=== PATIENT | male | born 1965 | race Caucasian/White ===

== ENCOUNTER 2016-10-17 08:39 | Observation (INO) | payer MEDICARE, OTHER ==
[~2016-10-17] VITALS: Ht 175.3 cm; Wt 93.8 kg
[2016-10-17] VITALS (38 sets, daily range): BP systolic 121–160; BP diastolic 67–98; PULSE 68–82; RESP 11–21; Ht 175.3 cm; Wt 93.8 kg
[2016-10-17] MEDS ORDERED: PRAV20TA2 PO (09:29)
[2016-10-17] MEDS ORDERED: ASPI81TA3 PO (09:29)
[2016-10-17] MEDS ORDERED: AMLO2.5T78 PO (09:29)
[2016-10-17] MEDS ORDERED: POLYMYXIN/BACITRACIN 1L IRRIG ONE (09:42)
[2016-10-17 09:49] LABS: ADD SCAN DIFF NO
[2016-10-17 09:52] LABS: BASOPHILS % 0.4 % (0.0-2.0); EOSINOPHILS # 0.2 10^3/ul (0.0-0.5); EOSINOPHILS % 2.6 % (0.0-7.0); HEMATOCRIT 47.1 % (42.0-52.0); HEMOGLOBIN 15.8 g/dl (14.0-18.0); LYMPHOCYTES # 2.1 10^3/ul (0.8-2.9); LYMPHOCYTES % 26.6 % (15.0-51.0); MEAN CORPUSCULAR HGB CONC 33.5 g/dl (32.0-37.0); MEAN CORPUSCULAR VOLUME 89.4 fl (82.0-101.0); MEAN PLATELET VOLUME 10.2 fl (7.4-10.4); MONOCYTE # 0.5 10^3/ul (0.3-0.9); MONOCYTES % 5.9 % (0.0-11.0); NEUTROPHILS % 63.9 % (39.0-77.0); PLATELET COUNT 220 10^3/UL (140-415); RED BLOOD COUNT 5.27 10^6/ul (4.70-6.10); WHITE BLOOD COUNT 7.8 10^3/ul (4.8-10.8)
[2016-10-17] MEDS ORDERED: CEFAZOLIN 1 GM/50 ML (PMX) 50 ML IVPB ONE ×2 (09:53→12:55)
[2016-10-17] MEDS ORDERED: LIDOCAINE 1% (MDV) 20 ML INJ ONE ×2 (09:58→11:04)
[2016-10-17] MEDS ORDERED: SOD CHLORIDE 0.9% 1,000 ML ONE (09:58)
[2016-10-17 10:03] LABS: INR 1.01; PROTIME 13.3 Sec (12.2-14.2)
[2016-10-17 10:04] LABS: PARTIAL THROMBOPLASTIN TIME 29.4 Sec (25.0-35.0)
[2016-10-17 10:20] LABS: CALCIUM 9.3 mg/dl (8.4-10.2); CREATININE 0.77 mg/dl (0.61-1.24); POTASSIUM 4.1 mmol/L (3.5-5.1)
[2016-10-17] MEDS ORDERED: LIDOCAINE 1%/EPI (MDV) 20 ML INJ ONE (10:40)
[2016-10-17] MEDS ORDERED: PROPOFOL 40 ML ONE (11:04)
[2016-10-17] MEDS ORDERED: FENTAnyl 50 MCG/ML VIAL ONE (11:05)
[2016-10-17] MEDS ORDERED: IODIXANOL LOCM 50 ML BTL ONE (11:32)
[2016-10-17] MEDS ORDERED: PROPOFOL 20 ML ONE (11:49)
[2016-10-17] MEDS ORDERED: SOD CHLORIDE 0.9% 1,000 ML IV SCH (12:26)
[2016-10-17] MEDS ORDERED: EPHEDrine SULFATE 50 MG/5 ML SYG IV PRN (12:30)
[2016-10-17] MEDS ORDERED: FENTAnyl 50 MCG/ML VIAL IV PRN ×3 (12:30)
[2016-10-17] MEDS ORDERED: LABETALOL HCL 20MG INJ IV PRN (12:30)
[2016-10-17] MEDS ORDERED: AL HYDROX/MG HYDROX/SIMETH 30 ML CUP PO PRN (12:30)
[2016-10-17] MEDS ORDERED: OXYCODONE/ACETAMINOPHEN (5/325) TAB PO PRN ×2 (12:30)
[2016-10-17] MEDS ORDERED: ACETAMINOPHEN 325 MG TAB PO PRN ×2 (12:30→13:00)
[2016-10-17] MEDS ORDERED: ONDANSETRON 4 MG INJ IV PRN ×2 (12:30→13:00)
[2016-10-17] MEDS ORDERED: hydrALAzine 20 MG INJ IV PRN ×2 (12:30→18:00)
[2016-10-17] MEDS ORDERED: morphine 2 MG INJ IV PRN ×2 (12:30→13:00)
--- NOTE | 2016-10-17 12:44 | SP ---
DATE OF PROCEDURE: REFERRING PHYSICIAN: Dr. Adam REASON FOR EVALUATION: Loss of capture of a pacemaker, suspected dislodged lead. POST-PROCEDURE DIAGNOSIS: Confirmed right ventricular lead dislodgment. PROCEDURES PERFORMED: 1. Explant of the old pacemaker, explant of the old lead. 2. Pacemaker, the new single chamber MRI pacemaker. 3. Fluoroscopy with interpretation. 4. Upper extremity venogram. 5. Post-procedure 2-D echo to assess absence of pericardial effusion. DEVICE INFORMATION: 1. Explanted device, [employer] SR 1240, serial #[id number], initially placed on 2015. 2. RV lead explanted, [employer] Tendril STS 2088TC, 58 cm, serial number [id number]. 3. New system had a [employer] MRI lead 1272, serial #[id number]. 4. New RV lead is Tendril MRI LPA lead 1200M, 58 cm lead, serial number [id number]. 5. Acute threshold R-wave was 9.9 millivolts, lead impedance was 700 ohms, capture 0.5 volts at 0.4 msec. 6. Initial setting is VVI 60. DESCRIPTION OF PROCEDURE: The informed consent was obtained. The patient [facility] into the [facility] in a fasting condition. Antibiotics were given prior to the procedure. The antibiotic inject ion was given to the patient before he had the procedure. Fluoroscopy was performed and it showed t hat RV lead was in an appropriate position, likely extracardiac in IVC or in one of the hepatic vein s. The patient had the left side of the chest prepped and draped in usual the sterile fashion. A 3 cm incision was made over the old scar. Upper extremity venogram was performed to assess patency. Using modified Seldinger technique, the subclavian was cannulated and J-wire passed easily. From t here using a 7-Chilean sheath as a base, the RV lead was advanced into RV apex and it was actively fi xed. Some slack was left inside the lead, and the sheath was peeled away. The lead was sutured to the muscle layer was 2-0 Ethibond sutures and the lead was attached to the generator. Then, the add itional dissection of the old lead was performed. The old generator was detached from the lead and removed from the R-lead. The extending wire on the lead, corkscrew wire, was retracted carefully, a nd under fluoroscopic guidance the lead was pulled away. There was no obvious hemodynamically compr omised and the lead came out easily. Then, hemostasis was obtained. The new pacemaker generator sy stem was placed inside the pocket after the pocket was irrigated with antibiotic solution. The skin was closed with multiple layers of 2-0 Vicryl sutures. Then the lead was closed. There was no obv ious hemodynamic instability. The patient had immediate post-procedure transthoracic echo which daylin wed preserved ejection fraction, no evidence of pericardial effusion. I am going to place the [facility] intensive care unit for observation now as he will be monitored for several hours and to confirm that there is no hemodynamic instability. Other than that, the patient will likely go home tomorrow after a 23-hour observation period. He will be continued on antibiotics and instructed to minimize motion of the arm to prevent further dislodgement. I would like to thank Dr. Adam for referring this patient for my evaluation. Dictated By: ALEXIS MCBRIDE/LILIAN Conf#: [id number] DID#: [id number]
[2016-10-17] MEDS ORDERED: DOCUSATE SODIUM 100 MG CAP PO PRN (13:00)
[2016-10-17] MEDS ORDERED: BISACODYL (EC) 5 MG TAB PO PRN (13:00)
[2016-10-17] MEDS ORDERED: ALBUTEROL/IPRATROPIUM (NEB) 3 ML AMP HHN PRN (13:00)
[2016-10-17] MEDS ORDERED: NA PHOSPHATE/BIPHOS 133 ML ENEMA PR PRN (13:00)
[2016-10-17] MEDS ORDERED: NACL 0.9% 3 ML SYG IV SCH (13:00)
[2016-10-17] MEDS ORDERED: ZOLPIDEM 5 MG TAB PO PRN (13:00)
[2016-10-17] MEDS ORDERED: MAGNESIUM HYDROXIDE 30ML CUP PO PRN (13:00)
[2016-10-17] MEDS ORDERED: HYDROCODONE/APAP (5/325) TAB PO PRN (13:00)
[2016-10-17] MEDS ORDERED: BISACODYL 10 MG SUPP PR PRN (13:00)
--- NOTE | 2016-10-17 13:11 | RADRPT ---
PROCEDURE: XR Chest. CLINICAL INDICATION: Pacemaker placement. TECHNIQUE: Single frontal view. COMPARISON: None. FINDINGS: The lungs are clear. The heart size is normal. There is a left-sided single lead permanent pacemaker with the tip in the right ventricle. There is no pleural effusion. There is no pneumothorax. IMPRESSION: 1. Permanent pacemaker. 2. No pneumothorax. RPTAT: QQ .Marques Trotter MD, MD Date Time Electronically viewed and signed by .Marques Trotter MD, MD on 10/17/2016 13:10 .R/
[2016-10-17] MEDS: ASPIRIN 81 MG TAB PO SCH (13:21)
[2016-10-17] MEDS: AMLODIPINE 5 MG TAB PO SCH (13:21)
[2016-10-17] MEDS: CEFAZOLIN 1 GM/50 ML (PMX) 50 ML IVPB SCH ×2 (13:21→21:57)
[2016-10-17] MEDS: ACCU-CHEK XX SCH ×2 (17:30→21:00)
--- NOTE | 2016-10-17 18:39 | HP ---
DATE OF ADMISSION: 10/17/2016 REASON FOR ADMISSION: Status post a new, single-chamber MRI pacemaker placement and removal of the old pacemaker due to confirmed right ventricular lead dislodgement. HISTORY OF PRESENT ILLNESS: This is a 51-year-old male, who has a past medical history of hypertens ion, hyperlipidemia, history of a previous CVA, history of a complete heart block requiring a pacema ker placement approximately more than 1 year before. The patient follows with our electrophysiologi st, Dr. Harshad Edwards, and he is noted to have a dislodgement of the right ventricular pacemaker lead. The patient was brought in by Dr. Harshad Edwards for removal of the old pacemaker and placement of a new right chamber MRI pacemaker placement. He underwent new, single-chamber MRI pacemaker placement by Dr. Edwarsd, and after the pacemaker placement the patient is getting admitted to the ICU for obs ervation. His admission orders have been done. Currently, he denies symptoms of chest pain, palpit ation, headache, dizziness, blurry vision, constipation, diarrhea, dysuria, increased urinary freque ncy. REVIEW OF SYSTEMS: Positive for pain at the pacemaker site. Other review of systems has been obtai sri, and is negative, except for what is mentioned in the history of present illness. PAST MEDICAL HISTORY 1. Hypertension. Hyperlipidemia. 2. History of a CVA - no residual deficits. 3. History of a complete heart block, required pacemaker placement approximately 1 year before. PAST SURGICAL HISTORY: History of a pacemaker placement. SOCIAL HISTORY: No smoking, alcohol or recreational drug use. FAMILY HISTORY: Noncontributory. PHYSICAL EXAMINATION VITAL SIGNS: Temperature 98.6, heart rate 78, respiration 14, blood pressure 149/84, saturation is 97% on room air. GENERAL: Awake, alert, in no distress. HEENT: Normal. Oropharynx clear. NECK: Supple; no JVD, no lymphadenopathy. LUNGS: Clear to auscultation. No crackles, no wheezes. HEART: S1, S2, with regular rhythm; no murmur. ABDOMEN: Soft, nontender, nondistended. Bowel sounds are present. EXTREMITIES: No clubbing, cyanosis, edema. NEUROLOGICAL: Nonfocal, intact. PSYCHIATRIC: Appropriate affect and mood. LABORATORY DATA AND DIAGNOSTIC IMAGING 1. WBC 7.8, hemoglobin 15.8, platelet count is 220. 2. Sodium 142, potassium 4.1, chloride 102, bicarbonate 27, BUN 15, creatinine 0.7, glucose 132, ca lcium 9.7. PT 13.3, PTT 29.4, INR 1.01 3. Chest x-ray: A permanent pacemaker, new pneumothorax. IMPRESSION This is a 51-year-old male with: 1. Status post placement of a new, single-chamber MRI pacemaker placement, postop day 0. 2. Status post removal of old pacemaker due to conformed right ventricular lead dislodgement. 3. History of hypertension. 4. History of a previous cerebrovascular - no residual deficits. 5. History of hyperlipidemia. PLAN 1. Admission to the ICU, as per the tractor operator laser leveling. We will continue the patient's postop orders. C urrently, he will be getting the Ancef 1 g IV q.8h. He is currently admitted for observation. We w ill continue his home medications amlodipine for blood pressure control and use the hydralazine IV p .r.n. systolic blood pressure more than 150. 2. Continue the aspirin and Lipitor. 3. His tractor operator laser leveling, Dr. Harshad Edwards, is to follow the patient. Patient was seen in the Recovery Room and he will be getting admitted to the ICU postop procedure. Dictated By: LINDA VU MD, KP/LILIAN Conf#: [id number] DID#: [id number]
[2016-10-17] MEDS ORDERED: ATORVASTATIN 40 MG TAB PO SCH (21:00)
[2016-10-17] MEDS: FAMOTIDINE 20 MG INJ IV SCH (21:23)
[2016-10-18] VITALS (13 sets, daily range): BP systolic 107–136; BP diastolic 58–91; PULSE 67–81; RESP 9–16
[2016-10-18] MEDS: CEFAZOLIN 1 GM/50 ML (PMX) 50 ML IVPB SCH (05:34)
[2016-10-18 06:24] LABS: ADD SCAN DIFF NO
[2016-10-18 06:29] LABS: BASOPHIL # 0.1 10^3/ul (0.0-0.1); BASOPHILS % 0.6 % (0.0-2.0); EOSINOPHILS # 0.2 10^3/ul (0.0-0.5); EOSINOPHILS % 2.7 % (0.0-7.0); HEMATOCRIT 44.7 % (42.0-52.0); HEMOGLOBIN 15.1 g/dl (14.0-18.0); LYMPHOCYTES # 2.3 10^3/ul (0.8-2.9); MEAN CORPUSCULAR HEMOGLOBIN 30.1 pg (29.0-33.0); MEAN CORPUSCULAR HGB CONC 33.8 g/dl (32.0-37.0); MEAN PLATELET VOLUME 9.9 fl (7.4-10.4); MONOCYTE # 0.6 10^3/ul (0.3-0.9); MONOCYTES % 7.1 % (0.0-11.0); NEUTROPHIL # 5.7 10^3/ul (1.6-7.5); NEUTROPHILS % 63.2 % (39.0-77.0); PLATELET COUNT 216 10^3/UL (140-415); RED BLOOD COUNT 5.02 10^6/ul (4.70-6.10); RED CELL DISTRIBUTION WIDTH 11.9 % (11.5-14.5)
[2016-10-18 06:45] LABS: INR 1.09; PROTIME 14.1 Sec (12.2-14.2); PT RATIO 1.1
[2016-10-18 06:57] LABS: ALBUMIN 3.6 g/dl (3.3-4.9); ALBUMIN/GLOBULIN RATIO 1.24; BILIRUBIN,INDIRECT 1.5 mg/dl (0-1.1); BILIRUBIN,TOTAL 1.5 mg/dl (0.2-1.3); CALCIUM 8.7 mg/dl (8.4-10.2); CREATININE 0.81 mg/dl (0.61-1.24); POTASSIUM 4.8 mmol/L (3.5-5.1); TOTAL PROTEIN 6.5 g/dl (6.1-8.1)
[2016-10-18] MEDS: ACCU-CHEK XX SCH ×2 (08:15→11:03)
[2016-10-18] MEDS: FAMOTIDINE 20 MG INJ IV SCH (08:35)
[2016-10-18] MEDS: AMLODIPINE 5 MG TAB PO SCH (08:35)
[2016-10-18] MEDS: ASPIRIN 81 MG TAB PO SCH (08:36)
--- NOTE | 2016-10-18 10:20 | PN ---
Date/Time of Note Date/Time of Note DATE: 10/18/16 TIME: 10:16 Assessment/Plan VTE Prophylaxis VTE Prophylaxis Intervention: SCD's Lines/Catheters IV Catheter Type (from Nrsg): Saline Lock Assessment/Plan Assessment/Plan 1. Status post placement of a new, single-chamber MRI pacemaker placement, postop day 0. 2. Status post removal of old pacemaker due to conformed right ventricular lead dislodgement. 3. History of hypertension. 4. History of a previous cerebrovascular - no residual deficits. 5. History of hyperlipidemia. PLAN: IV ancef pain control pacemaker checked, working fine BP stable d/c home with keflex . Subjective 24 Hr Interval Summary Free Text/Dictation doing better, BP stable, afebrile, Exam/Review of Systems Vital Signs Vitals Vital Signs Date Time Temp Pulse Resp B/P Pulse Ox O2 Delivery O2 Flow Rate FiO2 10/18/16 09:00 74 14 130/84 100 Room Air 10/18/16 08:00 98.3 Intake and Output 10/17/16 10/17/16 10/18/16 15:00 23:00 07:00 Intake Total 360 ml 445 ml 50 ml Output Total 450 ml 900 ml 450 ml Balance -90 ml -455 ml -400 ml Exam GENERAL: Awake, alert, in no distress. HEENT: Normal. Oropharynx clear. NECK: Supple; no JVD, no lymphadenopathy. LUNGS: Clear to auscultation. No crackles, no wheezes. HEART: S1, S2, with regular rhythm; no murmur. ABDOMEN: Soft, nontender, nondistended. Bowel sounds are present. EXTREMITIES: No clubbing, cyanosis, edema. NEUROLOGICAL: Nonfocal, intact. PSYCHIATRIC: Appropriate affect and mood. Results Result Diagram: 10/18/16 0518 10/18/16 0510 Results 24 hrs Laboratory Tests Test 10/17/16 13:00 10/17/16 18:39 10/17/16 21:24 10/18/16 05:10 Bedside Glucose 135 149 88 Sodium Level 137 Potassium Level 4.8 Chloride Level 105 Carbon Dioxide Level 28 Anion Gap 9 # Blood Urea Nitrogen 16 Creatinine 0.81 Glucose Level 126 Calcium Level 8.7 Total Bilirubin 1.5 H Direct Bilirubin 0.00 Indirect Bilirubin 1.5 H Aspartate Amino Transf (AST/SGOT) 24 Alanine Aminotransferase (ALT/SGPT) 39 Alkaline Phosphatase 55 Total Protein 6.5 Albumin 3.6 Globulin 2.90 Albumin/Globulin Ratio 1.24 Test 10/18/16 05:18 10/18/16 08:14 White Blood Count 9.0 Red Blood Count 5.02 Hemoglobin 15.1 Hematocrit 44.7 Mean Corpuscular Volume 89.0 Mean Corpuscular Hemoglobin 30.1 Mean Corpuscular Hemoglobin Concent 33.8 Red Cell Distribution Width 11.9 Platelet Count 216 Mean Platelet Volume 9.9 Neutrophils % 63.2 Lymphocytes % 26.0 Monocytes % 7.1 Eosinophils % 2.7 Basophils % 0.6 Nucleated Red Blood Cells % 0.0 Neutrophils # 5.7 Lymphocytes # 2.3 Monocytes # 0.6 Eosinophils # 0.2 Basophils # 0.1 Nucleated Red Blood Cells # 0.0 Prothrombin Time 14.1 Prothrombin Time Ratio 1.1 INR International Normalized Ratio 1.09 Activated Partial Thromboplast Time 30.0 Bedside Glucose 122 Medications Medications Current Medications Acetaminophen (Tylenol Tab) 650 mg Q4H PRN PO NON-CARDIAC PAIN LEVEL (1-3); Start 10/17/16 at 12:30 Morphine Sulfate (morphine) 2 mg Q2H PRN IV FOR NON CARDIAC PAIN (4-10); Start 10/17/16 at 12:30 Al Hydrox/Mg Hydrox/ Simethicone 30 ml 30 ml Q4H PRN PO GASTROINTESTINAL UPSET ; Start 10/17/16 at 12:30 Cefazolin Sodium (Ancef 1 Gm/50 ml (Pmx)) 50 ml @ 100 mls/hr Q8 IVPB Last administered on 10/18/16 05:34; Admin Dose 100 MLS/HR; Start 10/17/16 at 14:00 Miscellaneous Information (* Miscellaneous Pharmacy Order) DC all Lovenox, Hepari... ONCE XX ; Start 10/17/16 at 12:30 Amlodipine Besylate (Norvasc) 5 mg DAILY PO Last administered on 10/18/16 08:35 ; Admin Dose 5 MG; Start 10/17/16 at 13:00 Aspirin (Aspirin) 81 mg DAILY PO Last administered on 10/18/16 08:36; Admin Dose 81 MG; Start 10/17/16 at 13:00 Atorvastatin Calcium (Lipitor) 40 mg HS PO Last administered on 10/17/16 21:22 ; Admin Dose 40 MG; Start 10/17/16 at 21:00 Ondansetron HCl (Zofran Inj) 4 mg Q6H PRN IV NAUSEA AND/OR VOMITING; Start 10/17 at 13:00 Acetaminophen (Tylenol Tab) 650 mg Q6H PRN PO PAIN LEVEL 1-3 OR FEVER; Start at 13:00 Acetaminophen/ Hydrocodone Bitart ([place] (5/325)) 1 tab Q6H PRN PO MODERATE PAIN LEVEL 4-6; Start 10/17/16 at 13:00 Morphine Sulfate (morphine) 2 mg Q4H PRN IV SEVERE PAIN LEVEL 7-10; Start at 13:00 Docusate Sodium (Colace) 100 mg Q12H PRN PO CONSTIPATION; Start 10/17/16 at 13: 00 Magnesium Hydroxide (Milk Of Mag) 30 ml DAILY PRN PO CONSTIPATION; Start at 13:00 Bisacodyl (Dulcolax) 5 mg DAILY PRN PO CONSTIPATION; Start 10/17/16 at 13:00 Bisacodyl (Dulcolax Supp) 10 mg DAILY PRN ME CONSTIPATION; Start 10/17/16 at 13: 00 Sodium Biphosphate/ Sodium Phosphate (Fleet Enema) 133 ml DAILY PRN ME CONSTIPATION; Start 10/17/16 at 13:00 Zolpidem Tartrate (Ambien) 5 mg QHS PRN PO SLEEP; Start 10/17/16 at 13:00 Famotidine (Pepcid Iv) 20 mg Q12 IV Last administered on 10/18/16 08:35; Admin Dose 20 MG; Start 10/17/16 at 21:00 Hydralazine HCl (Apresoline) 10 mg Q4H PRN IV SBP>150 mm hg ; Start 10/17/16 at 18:00 LINDA VU MD Oct 18, 2016 10:20
--- NOTE | 2016-10-18 10:23 | PDOCDIS ---
Discharge Instructions CONDITION Patient Condition: Good HOME CARE INSTRUCTIONS: Special Diet: Low fat, low salt diet ACTIVITY: Activity Restrictions: Slowly Increase Activity Rest between Activity Avoid heavy lifting Do not operate Power Tool Avoid Heavy Housework FOLLOW UP/APPOINTMENTS Appointments follow up with Dr.Kalpesh Vu in 2 weeks after discahreg, Follow up with Dr.Mark Edwards in 2 weeks after discharge, Follow up with his original cardiolgosit in 1-2 week after discharge LINDA VU MD Oct 18, 2016 10:23
[2016-10-18] MEDS ORDERED: IBUP400T22 PO (10:25)
[2016-10-18] MEDS ORDERED: CEPH500C PO (10:25)
--- NOTE | 2016-10-18 10:58 | CONS ---
Date/Time of Note Date/Time of Note DATE: 10/18/16 TIME: 10:52 Assessment/Plan Assessment/Plan Chief Complaint/Hosp Course IMP: 1.PPM revision POD#1 s/p interrogation with normal function/no PTX by cxr 2.HTN 3.HL 4.cad Recc: -Tele -Continue statin -Contineu norvasc -Continue aspirin -abx prophylaxis x 5 days -ok for d/c with outpatient f/u Problems: Consultation Date/Type/Reason Admit Date/Time Oct 17, 2016 at 12:30 Initial Consult Date 10/18/2016 Type of Consultation: Cardiology Reason for Consultation PPM Referring Provider: ADITYA BERNSTEIN MD Exam/Review of Systems Vital Signs Vitals Vital Signs Date Time Temp Pulse Resp B/P Pulse Ox O2 Delivery O2 Flow Rate FiO2 10/18/16 09:00 74 14 130/84 100 Room Air 10/18/16 08:00 98.3 Intake and Output 10/17/16 10/17/16 10/18/16 15:00 23:00 07:00 Intake Total 360 ml 445 ml 50 ml Output Total 450 ml 900 ml 450 ml Balance -90 ml -455 ml -400 ml Exam Review of Systems: CONSTITUTIONAL: No fevers, chills. PULMONARY: No sob CARDIOVASCULAR: No chest pain/palpitations GASTROINTESTINAL: No nausea/vomiting. GENITOURINARY: No hematuria/dysuria. MUSCULOSKELETAL: No myagias/arthalgias. PSYCHIATRIC: The patient denies depression. NEUROLOGIC: No weakness Constitutional: alert Psych: no complaints Head: normocephalic ENMT: mucosa pink and moist Neck: jvd, supple Respiratory: diminished breath sounds, other (R upper chest pacer pocket c/d/i) Cardiovascular: regular rate and rhythm Gastrointestinal: soft Musculoskeletal: muscle tone Extremities: normal pulses Results Result Diagram: 10/18/16 0518 10/18/16 0510 Results 24 hrs Laboratory Tests Test 10/17/16 13:00 10/17/16 18:39 10/17/16 21:24 10/18/16 05:10 Bedside Glucose 135 149 88 Sodium Level 137 Potassium Level 4.8 Chloride Level 105 Carbon Dioxide Level 28 Anion Gap 9 # Blood Urea Nitrogen 16 Creatinine 0.81 Glucose Level 126 Calcium Level 8.7 Total Bilirubin 1.5 H Direct Bilirubin 0.00 Indirect Bilirubin 1.5 H Aspartate Amino Transf (AST/SGOT) 24 Alanine Aminotransferase (ALT/SGPT) 39 Alkaline Phosphatase 55 Total Protein 6.5 Albumin 3.6 Globulin 2.90 Albumin/Globulin Ratio 1.24 Test 10/18/16 05:18 10/18/16 08:14 White Blood Count 9.0 Red Blood Count 5.02 Hemoglobin 15.1 Hematocrit 44.7 Mean Corpuscular Volume 89.0 Mean Corpuscular Hemoglobin 30.1 Mean Corpuscular Hemoglobin Concent 33.8 Red Cell Distribution Width 11.9 Platelet Count 216 Mean Platelet Volume 9.9 Neutrophils % 63.2 Lymphocytes % 26.0 Monocytes % 7.1 Eosinophils % 2.7 Basophils % 0.6 Nucleated Red Blood Cells % 0.0 Neutrophils # 5.7 Lymphocytes # 2.3 Monocytes # 0.6 Eosinophils # 0.2 Basophils # 0.1 Nucleated Red Blood Cells # 0.0 Prothrombin Time 14.1 Prothrombin Time Ratio 1.1 INR International Normalized Ratio 1.09 Activated Partial Thromboplast Time 30.0 Bedside Glucose 122 Medications Medications Current Medications Acetaminophen (Tylenol Tab) 650 mg Q4H PRN PO NON-CARDIAC PAIN LEVEL (1-3); Start 10/17/16 at 12:30 Morphine Sulfate (morphine) 2 mg Q2H PRN IV FOR NON CARDIAC PAIN (4-10); Start 10/17/16 at 12:30 Al Hydrox/Mg Hydrox/ Simethicone 30 ml 30 ml Q4H PRN PO GASTROINTESTINAL UPSET ; Start 10/17/16 at 12:30 Cefazolin Sodium (Ancef 1 Gm/50 ml (Pmx)) 50 ml @ 100 mls/hr Q8 IVPB Last administered on 10/18/16 05:34; Admin Dose 100 MLS/HR; Start 10/17/16 at 14:00 Miscellaneous Information (* Miscellaneous Pharmacy Order) DC all Lovenox, Hepari... ONCE XX ; Start 10/17/16 at 12:30 Amlodipine Besylate (Norvasc) 5 mg DAILY PO Last administered on 10/18/16 08:35 ; Admin Dose 5 MG; Start 10/17/16 at 13:00 Aspirin (Aspirin) 81 mg DAILY PO Last administered on 10/18/16 08:36; Admin Dose 81 MG; Start 10/17/16 at 13:00 Atorvastatin Calcium (Lipitor) 40 mg HS PO Last administered on 10/17/16 21:22 ; Admin Dose 40 MG; Start 10/17/16 at 21:00 Ondansetron HCl (Zofran Inj) 4 mg Q6H PRN IV NAUSEA AND/OR VOMITING; Start 10/17 at 13:00 Acetaminophen (Tylenol Tab) 650 mg Q6H PRN PO PAIN LEVEL 1-3 OR FEVER; Start at 13:00 Acetaminophen/ Hydrocodone Bitart ([place] (5/325)) 1 tab Q6H PRN PO MODERATE PAIN LEVEL 4-6; Start 10/17/16 at 13:00 Morphine Sulfate (morphine) 2 mg Q4H PRN IV SEVERE PAIN LEVEL 7-10; Start at 13:00 Docusate Sodium (Colace) 100 mg Q12H PRN PO CONSTIPATION; Start 10/17/16 at 13: 00 Magnesium Hydroxide (Milk Of Mag) 30 ml DAILY PRN PO CONSTIPATION; Start at 13:00 Bisacodyl (Dulcolax) 5 mg DAILY PRN PO CONSTIPATION; Start 10/17/16 at 13:00 Bisacodyl (Dulcolax Supp) 10 mg DAILY PRN SD CONSTIPATION; Start 10/17/16 at 13: 00 Sodium Biphosphate/ Sodium Phosphate (Fleet Enema) 133 ml DAILY PRN SD CONSTIPATION; Start 10/17/16 at 13:00 Zolpidem Tartrate (Ambien) 5 mg QHS PRN PO SLEEP; Start 10/17/16 at 13:00 Famotidine (Pepcid Iv) 20 mg Q12 IV Last administered on 10/18/16 08:35; Admin Dose 20 MG; Start 10/17/16 at 21:00 Hydralazine HCl (Apresoline) 10 mg Q4H PRN IV SBP>150 mm hg ; Start 10/17/16 at 18:00 RENE RIOS Oct 18, 2016 10:58
--- NOTE | 2016-10-18 22:28 | DS ---
DATE OF ADMISSION: 10/17/2016 DATE OF DISCHARGE: 10/18/2016 DISCHARGE DIAGNOSES: 1. Status post placement of a new single-chamber MRI pacemaker. 2. Status post removal of old pacemaker due to right ventricular lead dislodgement. 3. History of hypertension. 4. History of previous cerebrovascular accident, no residual deficits. 5. History of hyperlipidemia. CONSULTATIONS DONE DURING THIS HOSPITALIZATION: Cardiology consult; Dr. Isidro Choi/Dr. Harshad nice. PROCEDURES PERFORMED DURING THIS HOSPITALIZATION: The patient underwent placement of a new single-c hamber pacemaker and removal of old pacemaker due to lead dislodgement, by Dr. Harshad Edwards. HOSPITAL COURSE: This is a 51-year-old male with a past medical history of hypertension, hyperlipid emia, history of CVA, history of previous CVA without residual deficits. The patient previously had a single-chamber pacemaker placement for complete heart block, by Dr. Harshad Edwards. The patient is noted to have right-sided upper quadrant pain, and his workup revealed that his right-sided pacemake r lead was dislodged, so he was brought in by Dr. Harshad Edwards for removal of old pacemaker and place ment of a pacemaker. He underwent placement of a new single-chamber MRI pacemaker. He tolerated th e procedure very well. Post procedure, the patient got admitted to the ICU, where he remained hemod ynamically stable. After getting stable vital signs, the patient was followed up by senior health physics technician, Radha Edwards. He was cleared for discharge and he got discharged home with a prescription of Kefl ex. He was also set up for home health upon discharge. DISPOSITION: To home. DISCHARGE CONDITION: Stable and improved, compared to admission. DISCHARGE ACTIVITIES: As tolerated, slowly resume to the normal baseline activity. DISCHARGE DIET: Cardiac, low-fat low-sodium diet. DISCHARGE MEDICATIONS: He is given a prescription of Keflex 500 mg p.o. t.i.d. x5 days. DISCHARGE FOLLOWUP AND INSTRUCTIONS: 1. The patient is to follow with Dr. Linda Yan in outpatient clinic 1-2 weeks after discharge. 2. The patient is to follow up with Dr. Edwards as outpatient in 1-2 weeks after discharge. He has been explained about the discharge plan and followup instructions. He understood and verbalized und erstanding. He is set up for home health upon discharge. Dictated By: LINDA YAN MD, KP/LILIAN Conf#: [id number] DID#: [id number]
--- NOTE | 2016-10-19 15:31 | RADRPT ---
Vent Rate: 68 bpm RR Interval: 0 msec DE Interval: 178 msec QRS Duration: 84 msec QT Interval: 374 msec QTC Interval: 397 msec P-R-T [place]: 18 - 42 - 31 degrees Normal sinus rhythm Nonspecific ST abnormality Abnormal ECG Electronically Signed By: Jaciel Finn [id number]
== END 2016-10-18 11:50 | disposition home or self-care (01) ==
LOC: SDS 08:39 → ICU 12:30 → INTOOBSV 12:30 → UNDOADMOB 20:12 → INTOOBSV 20:12 → SDS 20:12 → ICU 20:12
PROVIDERS: ADMIT Internal Medicine Nephrology; ATTEND Internal Medicine Nephrology
DX: T82.120A Displacement of cardiac electrode, initial encounter (principal); E11.9 Type 2 diabetes mellitus without complications; I10 Essential (primary) hypertension; E78.5 Hyperlipidemia, unspecified; Z86.73 Personal history of transient ischemic attack (TIA), and cerebral infarction without residual deficits; Z95.0 Presence of cardiac pacemaker; Y83.8 Other surgical procedures as the cause of abnormal reaction of the patient, or of later complication, without mention of misadventure at the time of the procedure
CPT/HCPCS: 33227; 71010; 80048; 80053; 82962; 85025; 85610; 85730; 93005; 93308; 96365; 96366; 96375; C1786; C1898; C2629; G0378; J0690; J3010; J7040; Q9967; 99217